=== PATIENT | male | born 1955 | race Caucasian/White ===

== ENCOUNTER 2022-04-28 17:03 | Emergency (ER) | payer OTHER ==
[~2022-04-28] VITALS: Ht 175.3 cm; Wt 95.2 kg
[~2022-04-28 17:03] MED LIST: ASPIR-LOW81 MG PO; LISINOPRIL10 MG PO; NITROGLYCERIN0.4 MG SL
== END 2022-04-28 19:15 | disposition home or self-care (01) ==
LOC: ED 17:03
DX: N50.89 Other specified disorders of the male genital organs (principal); I10 Essential (primary) hypertension; Z87.891 Personal history of nicotine dependence; Z79.899 Other long term (current) drug therapy; Z79.82 Long term (current) use of aspirin
CPT/HCPCS: 76870; 99284-25

== ENCOUNTER 2022-08-06 18:18 | Emergency (ER) | payer OTHER ==
[~2022-08-06] VITALS: Ht 175.3 cm; Wt 92.6 kg
[2022-08-06] MEDS ORDERED: ZITHROMAX250 MG PO (20:25)
[2022-08-06 20:45] VITALS: BP 148/72
== END 2022-08-06 20:45 | disposition home or self-care (01) ==
LOC: ED 18:18
DX: U07.1 COVID-19 (principal); J12.82 Pneumonia due to coronavirus disease 2019; I10 Essential (primary) hypertension; Z28.310 Unvaccinated for COVID-19; Z87.891 Personal history of nicotine dependence; Z79.899 Other long term (current) drug therapy
CPT/HCPCS: 36415; 71045; 80053; 81003; 83605; 83735; 85025; 87502; 96374; 99283-25; A9270; C9803; J1100; J7121; U0002